=== PATIENT | female | born 1990 | race Caucasian/White ===

== ENCOUNTER 2016-10-02 17:07 | Emergency (ER) | payer OTHER ==
[~2016-10-02] VITALS: Ht 162.6 cm; Wt 66.0 kg
[~2016-10-02 17:07] MED LIST: 5-HTP50 MG; ALBUTEROL SULF8.5 GM IH; B-COMPLEX-VITA1 EACH PO; BIRTH CONTROL; CONCERTA36 MG PO; ENDOCET 5-3251 EACH PO; IBUPROFEN800 MG PO; Motrin PO; NOHOMEMEDS; PREFERA-OB P1 TABLET PO; PRENATAL TABLE1 EAC3 PO; Percocet 5/325,Endoc PO; TESSALON PERLE100 MG PO; URSODIOL300 MG PO; VITAMIN D2000 UNI1 PO; WELLBUTRIN SR150 MG PO; ZANTAC150 MG PO; ZANTAC75 M1 PO; ZOFRAN ODT4 MG PO; ZOLOFT100 MG PO; Zantac PO; [UNRECOGNIZED DRUG - OTHER]
[2016-10-02 18:28] LABS: MCH 30.7 PG (29.0-34.0); MCHC 34.4 G/DL (30.0-36.0); MCV 89.1 FL (83-99); MEAN PLAT.VOLUME 11.9 uM^3 (9.5-12.4); PLATELET COUNT 223 K/uL (156-360); RBC DIS.WIDTH-CV 13.1 % (11.8-14.6); RED BLOOD COUNT 5.05 M/uL (3.80-5.20); WHITE BLOOD COUNT 12.5 K/uL (4.1-10.2)
[2016-10-02 18:39] LABS: CHLORIDE 106 mEq/L (99-109); POTASSIUM 3.9 mEq/L (3.7-5.4); SODIUM 142 mEq/L (136-147)
[2016-10-02 18:42] LABS: GLUCOSE 85 mg/dL (70-99)
[2016-10-02 18:43] LABS: ANION GAP 13 MEQ/L (2-14)
[2016-10-02 18:44] LABS: TOTAL BILIRUBIN 0.6 mg/dL (0.0-1.0)
[2016-10-02 18:45] LABS: ALKALINE PHOSPHATASE 107 IU/L (3-129); GFR ESTIMATE (CALCULATED) > 59 mL/min/
[2016-10-02 18:46] LABS: UREA NITROGEN (BUN) 15 mg/dL (9-23)
[2016-10-02 18:50] LABS: ADD MIUA? YES; BILIRUBIN NEGATIVE; BLOOD NEGATIVE; COLOR YELLOW ((YELLOW)); GLUCOSE (STRIP) NEGATIVE; KETONES 20; LEUKOCYTES NEGATIVE; NITRITE NEGATIVE; PROTEIN (STRIP) NEGATIVE; SPECIFIC GRAVITY 1.028 (1.000-1.030); UROBILINOGEN 0.2 MG/DL (0.2-1.0)
[2016-10-02 18:55] LABS: QUANTITATIVE HCG < 4.0 MIU/ML
[2016-10-02 18:59] LABS: BACTERIA RARE /HPF; EPITHELIAL CELLS 1+ /HPF; MUCUS 2+ /LPF; UCUL ADDED? NO; WHITE BLOOD CELLS 0-5 /HPF (0-5)
[2016-10-02] MEDS ORDERED: ZOFRAN4 MG PO (20:23)
[2016-10-02] MEDS ORDERED: PEPCID20 MG PO (20:23)
[2016-10-02 20:39] VITALS: BP 118/71
== END 2016-10-02 20:40 | disposition home or self-care (01) ==
LOC: EME 17:07
DX: R11.2 Nausea with vomiting, unspecified (principal); R10.13 Epigastric pain; K21.9 Gastro-esophageal reflux disease without esophagitis; Z87.442 Personal history of urinary calculi; Z87.891 Personal history of nicotine dependence
CPT/HCPCS: 80053; 81003; 84702; 85027; 93005; 99281; 99284

== ENCOUNTER 2016-12-08 10:10 | Emergency (ER) | payer OTHER ==
[~2016-12-08] VITALS: Ht 162.6 cm; Wt 67.9 kg
[~2016-12-08 10:10] MED LIST changes: +PEPCID20 MG PO; +ZOFRAN4 MG PO
[2016-12-08] MEDS ORDERED: NAPROSYN375 MG PO (11:03)
[2016-12-08 11:17] VITALS: BP 116/67
== END 2016-12-08 11:17 | disposition home or self-care (01) ==
LOC: EME 10:10
PROC: 0UPD7HZ Removal of Contraceptive Device from Uterus and Cervix, Via Natural or Artificial Opening (ICD-10-PCS; principal; 2016-12-08)
DX: R10.2 Pelvic and perineal pain (principal); Z97.5 Presence of (intrauterine) contraceptive device; Z87.442 Personal history of urinary calculi; Z87.891 Personal history of nicotine dependence
CPT/HCPCS: 99281; 99284

== ENCOUNTER 2016-12-12 17:05 | Emergency (ER) | payer OTHER ==
[~2016-12-12] VITALS: Ht 162.6 cm; Wt 65.7 kg
[~2016-12-12 17:05] MED LIST changes: +NAPROSYN375 MG PO
[2016-12-12 18:27] LABS: HEMATOCRIT 42.5 % (36.0-46.0); MCH 30.8 PG (29.0-34.0); MCHC 33.9 G/DL (30.0-36.0); MEAN PLAT.VOLUME 11.1 uM^3 (9.5-12.4); PLATELET COUNT 219 K/uL (156-360); RBC DIS.WIDTH-SD 42.7 % (39-53); RED BLOOD COUNT 4.67 M/uL (3.80-5.20); WHITE BLOOD COUNT 5.8 K/uL (4.1-10.2)
[2016-12-12 18:36] LABS: CHLORIDE 107 mEq/L (99-109); POTASSIUM 3.9 mEq/L (3.7-5.4); SODIUM 139 mEq/L (136-147)
[2016-12-12 18:38] LABS: GLUCOSE 90 mg/dL (70-99)
[2016-12-12 18:39] LABS: ANION GAP 14 MEQ/L (2-14)
[2016-12-12 18:40] LABS: TOTAL BILIRUBIN 0.4 mg/dL (0.0-1.0)
[2016-12-12 18:42] LABS: ALKALINE PHOSPHATASE 84 IU/L (3-129); GFR ESTIMATE (CALCULATED) > 59 mL/min/
[2016-12-12 18:43] LABS: UREA NITROGEN (BUN) 12 mg/dL (9-23)
[2016-12-12 18:45] LABS: LIPASE 15 U/L (1.0-51.0)
[2016-12-12 18:54] LABS: QUANTITATIVE HCG < 4.0 MIU/ML
[2016-12-12 19:11] LABS: BILIRUBIN NEGATIVE; BLOOD NEGATIVE; COLOR YELLOW ((YELLOW)); GLUCOSE (STRIP) NEGATIVE; KETONES NEGATIVE; LEUKOCYTES NEGATIVE; NITRITE NEGATIVE; PROTEIN (STRIP) NEGATIVE; SPECIFIC GRAVITY 1.009 (1.000-1.030); UROBILINOGEN 0.2 MG/DL (0.2-1.0)
[2016-12-12 19:25] LABS: ADD MIUA? NO; UCUL ADDED? NO
[2016-12-12] MEDS ORDERED: AMOXICILLIN500 M1 PO (20:45)
[2016-12-12 20:58] VITALS: BP 109/65
== END 2016-12-12 21:01 | disposition home or self-care (01) ==
LOC: EME 17:05
PROVIDERS: Physician Assistant
DX: R10.9 Unspecified abdominal pain (principal); K21.9 Gastro-esophageal reflux disease without esophagitis; Z87.442 Personal history of urinary calculi; Z87.891 Personal history of nicotine dependence
CPT/HCPCS: 76705; 80053; 81003; 83690; 84702; 85027; 99281; 99284

== ENCOUNTER 2017-05-09 13:04 | Emergency (ER) | payer OTHER ==
[~2017-05-09] VITALS: Ht 165.1 cm; Wt 65.2 kg
[~2017-05-09 13:04] MED LIST changes: +AMOXICILLIN500 M1 PO
[2017-05-09 13:34] LABS: MCH 30.1 PG (29.0-34.0); MCHC 32.8 G/DL (30.0-36.0); MCV 91.7 FL (83-99); MEAN PLAT.VOLUME 11.7 uM^3 (9.5-12.4); PLATELET COUNT 234 K/uL (156-360); RBC DIS.WIDTH-CV 12.4 % (11.8-14.6); RBC DIS.WIDTH-SD 41.4 % (39-53); RED BLOOD COUNT 4.69 M/uL (3.80-5.20); WHITE BLOOD COUNT 6.9 K/uL (4.1-10.2)
[2017-05-09 13:46] LABS: CHLORIDE 105 mEq/L (99-109); POTASSIUM 4.2 mEq/L (3.7-5.4); SODIUM 141 mEq/L (136-147)
[2017-05-09 13:47] LABS: GLUCOSE 93 mg/dL (70-99)
[2017-05-09 13:49] LABS: ANION GAP 12 MEQ/L (2-14)
[2017-05-09 13:51] LABS: GFR ESTIMATE (CALCULATED) > 59 mL/min/
[2017-05-09 13:52] LABS: UREA NITROGEN (BUN) 14 mg/dL (9-23)
[2017-05-09] MEDS ORDERED: MEDROL DOSEPAK4 MG PO (16:11)
[2017-05-09] MEDS ORDERED: CHERATUSSIN AC473 ML PO (16:11)
[2017-05-09] MEDS ORDERED: AUGMENTIN875 MG PO (16:11)
[2017-05-09 16:17] VITALS: BP 135/74
[2017-05-09 16:34] LABS: QUANTITATIVE HCG < 4.0 MIU/ML
== END 2017-05-09 16:18 | disposition home or self-care (01) ==
LOC: EME 13:04
DX: J32.9 Chronic sinusitis, unspecified (principal); Q07.00 Arnold-Chiari syndrome without spina bifida or hydrocephalus; Q79.6 Ehlers-Danlos syndromes
CPT/HCPCS: 71020; 80048; 84702; 85027; 93005; 99281; 99283

== ENCOUNTER 2017-06-28 17:09 | Emergency (ER) | payer OTHER ==
[~2017-06-28] VITALS: Ht 165.1 cm; Wt 67.9 kg
[~2017-06-28 17:09] MED LIST changes: +ASCORBIC ACID500 M3 PO; +AUGMENTIN875 MG PO; +CHERATUSSIN AC473 ML PO; +MEDROL DOSEPAK4 MG PO
[2017-06-28] MEDS ORDERED: PEPCID20 MG PO (18:07)
[2017-06-28] MEDS ORDERED: BENADRYL25 MG PO (18:07)
[2017-06-28 18:35] VITALS: BP 00/00
== END 2017-06-28 18:38 | disposition home or self-care (01) ==
LOC: EME 17:09
DX: R21 Rash and other nonspecific skin eruption (principal); R07.9 Chest pain, unspecified; R00.2 Palpitations; T44.3X5A Adverse effect of other parasympatholytics [anticholinergics and antimuscarinics] and spasmolytics, initial encounter; K58.0 Irritable bowel syndrome with diarrhea; Z87.891 Personal history of nicotine dependence
CPT/HCPCS: 99281; 99283; J1100

== ENCOUNTER → 2017-08-28 | Outpatient (CLI) | payer OTHER ==
[~2017-08-28] MED LIST changes: +BENADRYL25 MG PO
== END | disposition home or self-care (01) ==
LOC: NUC 06:45
DX: R11.0 Nausea (principal)
CPT/HCPCS: 78264; A9541